=== PATIENT | female | born 1950 | race Caucasian/White ===

== ENCOUNTER 2016-08-08 04:07 | Emergency (ER) | payer MEDICARE ==
[2016-08-08 05:19] LABS: BASOPHIL 0.3 % (0-2); EOSINOPHIL 2.4 % (0-7); HCT 36.9 % (37.0-47.0); HGB 12.8 g/dl (12.5-16.0); LYMPHOCYTE 24.3 % (15-48); MCH 30.3 pg (25.0-31.0); MCHC 34.7 g/dL (32.0-36.0); MCV 87.4 fL (78.0-100.0); MONOCYTE 7.2 % (0-12); MPV 11.3 fL (6.0-9.5); NEUTROPHIL 65.8 % (41-80); PLT 259 K/uL (150-400); RBC 4.22 M/uL (4.20-5.40); RDW 12.1 % (11.5-14.0); WBC 7.5 K/uL (4.0-10.5)
[2016-08-08 05:30] LABS: INR 0.96 (0.9-1.2); PROTHROMBIN TIME 12.4 SECONDS (11.7-14.0); PTT 34.5 SECONDS (23.2-31.4)
[2016-08-08 05:31] LABS: D-DIMER 0.54 ug/mLFEU (0.00-0.41)
[2016-08-08 05:36] LABS: ALBUMIN 3.9 g/dL (3.4-4.8); BILIRUBIN - TOTAL 0.4 mg/dL (0.1-1.0); CREATININE 0.8 mg/dL (0.5-1.0); GLOBULIN (CALCULATION) 3.9 g/dL (2.2-4.2); MAGNESIUM 1.95 mg/dL (1.40-2.10); TOTAL PROTEIN 7.8 g/dL (6.4-8.3)
[2016-08-08 05:39] LABS: MYOGLOBIN 21 ng/mL (26-65); TROPONIN T < 0.010 ng/mL
[2016-08-08 05:42] LABS: PRO-BNP 223 pg/mL (0-125)
== END 2016-08-08 06:59 | disposition home or self-care (01) ==
LOC: FER 04:07
PROVIDERS: Emergency Medicine
DX: R06.00 Dyspnea, unspecified (principal); F41.9 Anxiety disorder, unspecified; R06.02 Shortness of breath; G35 Multiple sclerosis
CPT/HCPCS: 36415; 71010; 80053; 82550; 82553; 83735; 83874; 83880; 84484; 85025; 85379; 85610; 85730; 93005